=== PATIENT | female | born 1935 | race Caucasian/White ===

== ENCOUNTER 2018-08-27 05:28 | Day surgery (SDC) | payer OTHER ==
[~2018-08-27] VITALS: Ht 167.6 cm; Wt 98.4 kg
--- NOTE | ~2018-08-27 | O ---
[facility] [place] [address] OPERATIVE REPORT Name: SHANNA CHEUNG Room #: 150-3 [facility].#: [id number] Admission: 08/27/18 Attend Phys: Chance Yost MD Discharge: Date of : 35 Report #: [id number] THIS REPORT FOR: //name// CC: Roxy Yost DATE OF SERVICE: 08/27/[address] Chance Yost and Dr. Roxy Man. PREOPERATIVE DIAGNOSIS: Nonhealing abdominal wound. POSTOPERATIVE DIAGNOSIS: Nonhealing abdominal wound. PROCEDURE: Excision of and revision and closure of a nonhealing chronic lower abdominal wound, measuring 6 cm x 3 cm with complex layered closure. SURGEON: Chance Yost MD EDITOR INDEX: Maki Ceja RN. ANESTHESIA: Local IV sedation. DESCRIPTION OF PROCEDURE: The patient was brought to the operating room and placed on operative table in the supine position. Sequential compression devices were in place for DVT prophylaxis. She received an appropriate preoperative dose of Ancef. The patient underwent IV sedation. The abdomen was then prepped and draped in a sterile fashion. Skin and subcutaneous tissue around this 6 cm x 3 cm area of nonhealing wound was infiltrated with 0.5% Marcaine and 1% Xylocaine in a 1:1 mixture. Elliptical skin incision was performed around this area vertically using a #15 scalpel blade. Hemostasis obtained using electrocautery. Dissection was carried down through subcutaneous tissue and freed up flaps superiorly, inferiorly, medially and laterally using the electrocautery. The deep and superficial subcutaneous tissue was then reapproximated using simple and horizontal mattress 2-0 and 0 Vicryl sutures. The skin was then closed using interrupted vertical mattress 3-0 nylon sutures. The wound was then dressed with antibiotic ointment, Telfa, 4 x 4 gauze, sponge, tape and an abdominal binder. The patient was then taken to the recovery room awake, alert and in good condition. Estimated blood loss was approximately 10 mL and the patient tolerated procedure well. All sponge, lap and instrument counts correct x 2. By: [id number] Chance Yost MD /nt
[~2018-08-27 05:28] MED LIST: ACETAMINOPHEN-1 EAC1 PO; ASPIR 8181 MG PO; BYSTOLIC10 MG PO; CLONIDINE HCL0.1 MG PO; COZAAR 25 MG TA25 M1 PO; CRESTOR40 MG PO; EFFER-K 20 MEQ20 ME1 PO; LANTUS SOL100 UNIT/1 SUBQ; NORVASC5 MG PO; PIOGLITAZONE30 MG PO; REQUIP 0.25 M0.25 M1 PO; SPIRONOLACTONE25 M1 PO
[2018-08-27 09:16] LABS: CALCIUM 9.7 mg/dL (8.5-10.1); CREATININE 1.3 mg/dL (0.6-1.0)
[2018-08-27] MEDS ORDERED: NORCO 5-325 TA1 EACH PO (11:13)
[2018-08-27 12:19] VITALS: BP 121/46
[2018-08-27 12:59] VITALS: BP 121/46
[2018-08-27] MEDS ORDERED: PERCOCET PO (14:00)
--- NOTE | 2018-08-28 07:56 | EKG ---
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 : 1935 Requested By: Chance Yost Order Number: [id number] MD: Loki Ascencio Measurements Intervals Dupo Rate: 67 P: 35 MN: 178 QRS: -29 QRSD: 94 T: 17 QT: 412 QTc: 435 Interpretive Statements Sinus rhythm Probable left atrial enlargement Abnormal R-wave progression, early transition Left ventricular hypertrophy No previous ECG available for comparison Electronically Signed On 08-28-2018 7:56:12 FAMILY SERVICE COUNSELOR by Loki Ascencio [email or web address] <ELECTRONICALLY SIGNED> By: Loki Ascencio MD 08/28/18 0756 8 8 Loki Ascencio MD /MARY
--- NOTE | 2018-08-29 14:07 | PATH ---
[facility] [address] [place] [address] PATHOLOGY RPT PROCEDURE Name: VICKY CHEUNG Room #: DEP [facility] M.R.#: [id number] Admission: 08/27/18 Date of : 35 Discharge: 08/27/18 Report #: [id number] Path Case #: [id number] [facility] Accession Number: [id number] . 01 Material submitted: . PROMINENT NON HEALING ABDOMINAL WOUND . 01 Clinical history: . Chronic inflamed scar tissue . 02 Diagnosis: Skin and subcutaneous tissue, prominent nonhealing abdominal wound, debridement: - Ulceration associated with fibrinoid degeneration and marked acute inflammation, consistent with the wound tissue. - Squamous epithelium showing reactive changes. . (IUV:mml; 08/28/2018) QLM/08/28/2018 . 02 Electronically signed: . Any Pak MD, Pathologist NPI- [id number] . 01 Gross description: . The specimen is received in formalin, labeled "Vicky Cheung, prominent nonhealing abdominal wound", are two fragments of dark brown rim of skin with a central moreno-white tissue and underlying attached adipose tissue. The largest fragment measures 4.0 x 2.4 x 0.7 cm and the other 2.2 x 0.8 x 1.8 cm. Sectioning shows a soft cut surface. Grubber tissue is submitted in A1-A2. (A1 = largest fragment and A2 = remaining fragment) ([facility]; 08/27/2018) SHS/SHS . 02 Pathologist provided ICD-10: L98.499, L08.9 . 02 CPT . 781864 Specimen Comment: A courtesy copy of this report has been sent to Specimen Comment: [phone], . Specimen Comment: Report sent to / DR PARIS Specimen Comment: A duplicate report has been generated due to demographic updates. Performed at: [address], [place], [place] [id number] [place] [address] PATHOLOGY RPT PROCEDURE Name: VICKY CHEUNG Room #: DEP [facility] [place] Edgar#: [id number] Admission: 08/27/18 Date of : 35 Discharge: 08/27/18 Report #: [id number] Path Case #: [id number] MD Jc Lora MD Phone: [phone] Performed at: [address] [id number] MD Any Pak MD Phone: [phone]
== END 2018-08-27 14:05 | disposition home or self-care (01) ==
LOC: OR 05:28 → TBA 05:28 → OR 13:20
PROVIDERS: Surgery
DX: T81.89XA Other complications of procedures, not elsewhere classified, initial encounter (principal); L91.0 Hypertrophic scar; I10 Essential (primary) hypertension; E11.9 Type 2 diabetes mellitus without complications; M19.90 Unspecified osteoarthritis, unspecified site; E03.9 Hypothyroidism, unspecified; E78.00 Pure hypercholesterolemia, unspecified; E66.09 Other obesity due to excess calories; Z85.3 Personal history of malignant neoplasm of breast; Z98.890 Other specified postprocedural states; Z82.49 Family history of ischemic heart disease and other diseases of the circulatory system; Z80.3 Family history of malignant neoplasm of breast; Z88.6 Allergy status to analgesic agent; Z87.891 Personal history of nicotine dependence; Z79.4 Long term (current) use of insulin; Z79.899 Other long term (current) drug therapy; Z79.82 Long term (current) use of aspirin; Z90.710 Acquired absence of both cervix and uterus; Z98.41 Cataract extraction status, right eye; Z98.42 Cataract extraction status, left eye; Z68.35 Body mass index [BMI] 35.0-35.9, adult; Y83.8 Other surgical procedures as the cause of abnormal reaction of the patient, or of later complication, without mention of misadventure at the time of the procedure
CPT/HCPCS: 50010; 50101; 50386; 50403; 56524; 56525; 56526; 62110; 62850; 70005